=== PATIENT | male | born 1945 | race Caucasian/White ===

== ENCOUNTER 2017-10-10 09:37 | Inpatient (IN) | payer OTHER, MEDICAID ==
[2017-10-10] MEDS ORDERED: NS 250 ML IV 250 ML IV ONE (11:11)
[2017-10-10] MEDS: NS 250 ML IV 250 ML IV SCH (11:17)
[2017-10-10 11:30] LABS: ABG BASE EXCESS 2.4 mmol/L (-2.0-2.0); ABG HCO3 27.2 mmol/L (22-26)
[2017-10-10] MEDS: LEVAQUIN PREMIX IV 500 MG 500 MG/100 ML BAG IV SCH (11:30)
[2017-10-10] MEDS: SOLU-Medrol 125 MG VIAL IVP SCH ×3 (11:30→21:00)
[2017-10-10 11:31] LABS: ABG ALLEN TEST POS
[2017-10-10 11:35] LABS: BASOPHILS # (AUTO) 0.1 X10^3/uL (0.0-0.1); BASOPHILS % (AUTO) 0.6 % (0.2-1.0); EOSINOPHILS % (AUTO) 0.2 % (0.9-2.9); HEMATOCRIT 42.7 % (42.0-54.0); HEMOGLOBIN 14.5 g/dL (13.5-18.0); LYMPHOCYTES # (AUTO) 0.6 X10^3/uL (1.3-2.9); LYMPHOCYTES % (AUTO) 6.1 % (21.0-51.0); MEAN CORPUSCULAR HEMOGLOBIN 31.1 pg (27.0-34.0); MEAN CORPUSCULAR HGB CONC 33.9 g/dL (33.0-35.0); MEAN CORPUSCULAR VOLUME 91.8 fL (80.0-100.0); MEAN PLATELET VOLUME 6.7 fL (7.4-11.0); MONOCYTES # (AUTO) 0.5 x10^3/uL (0.3-0.8); NEUTROPHILS % (AUTO) 88.1 % (42.0-75.0); PLATELET COUNT 204 X10^3/uL (150.0-450.0); RED BLOOD COUNT 4.65 X10^6/uL (4.7-6.0); RED CELL DISTRIBUTION WIDTH 14.4 % (11.6-16.5); WHITE BLOOD COUNT 9.1 X10^3/uL (3.6-10.0)
[2017-10-10 11:41] LABS: BLOOD UREA NITROGEN 13 mg/dL (7-18); CALCIUM 8.8 mg/dL (8.5-10.1); CARBON DIOXIDE 30.2 mmol/L (21-32); CHLORIDE 104 mmol/L (98-107); CREATININE 0.79 mg/dL (0.70-1.30); SODIUM 141 mmol/L (136-145); eGFR BLACK RACES > 60 (>60); eGFR NON BLACK RACES > 60 (>60)
[2017-10-10 12:17] VITALS: BMI 21.1
--- NOTE | 2017-10-10 13:31 | RAD ---
Examination: Chest x-ray. Clinical History: COPD, shortness of breath. Technique: PA and lateral views of the chest were obtained. Comparison: None available. Findings: The cardiac and mediastinal contours are within normal limits. The thoracic aorta is calcified. No pneumothorax or pleural effusion is noted. There are areas of relative lucency seen in the upper lung zones bilaterally, suggestive of COPD/emph ysema. A 1.2 cm nodular opacity is present at the right lung base, which could represent a nipple shadow. A repeat chest x-ray with associated nipple markers is recommended for further evaluation. Degenerative changes are noted in the spine. No acute osseous abnormality is noted. Impression: 1. Findings suggestive of COPD/emphysema. 2. A 1.2 cm nodular opacity is present at the right lung base, which could represent a nipple shadow. A repeat chest x-ray with associated nipple markers is recommended for further evaluation. Reported By:
[2017-10-10] MEDS: DUONEB 0.5 MG/3 MG NEB SCH ×3 (13:32→20:37)
[2017-10-10 14:35] LABS: BILIRUBIN,URINE NEGATIVE (NEGATIVE); BLOOD/HEMOGLOBIN,URINE NEGATIVE (NEGATIVE); GLUCOSE, URINE NEGATIVE (NEGATIVE); KETONES,URINE NEGATIVE (NEGATIVE); LEUKOCYTE ESTERASE ,URINE NEGATIVE (NEGATIVE); NITRITES,URINE NEGATIVE (NEGATIVE); PROTEIN,URINE NEGATIVE (NEGATIVE); UROBILINOGEN,URINE NORMAL (NORMAL)
[2017-10-10 14:40] LABS: APPEARANCE,URINE CLEAR (CLEAR); COLOR,URINE YELLOW (YELLOW)
[2017-10-10] MEDS: NORCO 5/325 MG TAB PO PRN (16:10)
[2017-10-10] MEDS: LOVENOX INJ 30 MG SYR SC SCH (16:14)
--- NOTE | 2017-10-10 18:39 | DR.CONSULT ---
Consult - Consultation for Day of: Date: 10/10/17 - Chief Complaint Chief Complaint: Patient referred for dysphagia. Patient with complaints of dysphagia. - Allergies Allergies/Adverse Reactions: Allergies Allergy/AdvReac Type Severity Reaction Status Date / Time ibuprofen [From Advil] Allergy Verified 10/10/17 10:56 Penicillins Allergy Verified 10/10/17 10:56 Sulfa (Sulfonamide Allergy Verified 10/10/17 10:56 Antibiotics) [SULFA] - History of Present Illness History of Present Illness: Patient is a 72 yo female who was referred for dysphagia. Patient with complaints of dysphagia that has been going on for a while but has gradually gotten worse. He denies dyspepsia he takes dexilant 60mg daily for GERD, he also denies nausea, vomiting, abdominal pain, constipation, diarrhea, melena and hematochezia. Last colon was 3-4yrs ago with Dr. Reese in [place] he states that he had adenomatous colon polyps. - Past Medical History Past Medical History: Anxiety, Arthritis, COPD, Coronary Artery Disease, GERD Additional Medical History: BPH - Past Surgical History Surgical History: Ortho Surgery, TURP - Family History Family Medical History: Cancer, Coronary Artery Disease, Heart Failure, Hypertension - Social History Does patient currently use any type of tobacco product: No Have you used tobacco products in the last 12 months: No Type of Tobacco Use: Cigarettes How many years tobacco product used: 2 Does any household member use tobacco: Yes Alcohol Use: None Drug Use: Prescription Drugs - Review of Systems Constitutional: No Symptoms Reported Eyes: No Symptoms Reported ENT: No Symptoms Reported Respiratory: No Symptoms Reported Cardiovascular: No Symptoms Reported Gastrointestinal: Other (dysphagia) Genitourinary: No Symptoms Reported Musculoskeletal: No Symptoms Reported Skin: No Symptoms Reported Neurological: No Symptoms Reported - Physical Exam Vital Signs: Temperature 98.3 F Pulse Rate [Right Brachial] 66 Pulse Rate [Left Brachial] 65 Respiratory Rate 20 Blood Pressure [Right Arm] 122/64 Blood Pressure [Left Arm] 134/68 O2 Sat by Pulse Oximetry 96 Oriented: Normal Eyes: Normal Ear: Normal Nose: Normal Throat: Normal Respiratory: Clear Throughout Cardiovascular: Normal : Normal Auscultation: Bowel Sounds: Normal Palpation: Normal Tenderness: Normal Skin: Normal Musculoskeletal: Normal Psychiatric: Normal Mood Description: Calm Affect: Normal Speech Pattern: Clear - Plan Plan: Assessment. 1. Dysphagia r/o esophageal stricture. 2. GERD. Plan. 1. EGD as outpatient, if patient is still in hospital EGD may be performed saturday. Otherwise patient to followup in office. 2. Cont Dexilant 60mg Daily. Plan reviewed with Dr. Ramsey
[2017-10-11] MEDS: DUONEB 0.5 MG/3 MG NEB SCH ×6 (00:59→21:23)
[2017-10-11] MEDS: NS 250 ML IV 250 ML IV SCH ×3 (01:26→14:14)
[2017-10-11] MEDS: NORCO 5/325 MG TAB PO PRN (04:53)
[2017-10-11 05:43] LABS: BASOPHILS % (AUTO) 0.2 % (0.2-1.0); HEMATOCRIT 40.2 % (42.0-54.0); HEMOGLOBIN 13.7 g/dL (13.5-18.0); LYMPHOCYTES # (AUTO) 0.5 X10^3/uL (1.3-2.9); LYMPHOCYTES % (AUTO) 4.7 % (21.0-51.0); MEAN CORPUSCULAR HEMOGLOBIN 31.4 pg (27.0-34.0); MEAN CORPUSCULAR HGB CONC 34.1 g/dL (33.0-35.0); MEAN CORPUSCULAR VOLUME 92.2 fL (80.0-100.0); MEAN PLATELET VOLUME 7.1 fL (7.4-11.0); MONOCYTES # (AUTO) 0.3 x10^3/uL (0.3-0.8); MONOCYTES % (AUTO) 2.5 % (0.0-13.0); NEUTROPHILS # (AUTO) 10.1 x10^3/uL (2.2-4.8); NEUTROPHILS % (AUTO) 92.6 % (42.0-75.0); PLATELET COUNT 197 X10^3/uL (150.0-450.0); RED BLOOD COUNT 4.36 X10^6/uL (4.7-6.0); RED CELL DISTRIBUTION WIDTH 14.2 % (11.6-16.5)
[2017-10-11 05:47] LABS: BLOOD UREA NITROGEN 17 mg/dL (7-18); CALCIUM 8.5 mg/dL (8.5-10.1); CARBON DIOXIDE 26.7 mmol/L (21-32); CHLORIDE 105 mmol/L (98-107); COR NA(FOR HYPERGLY) 142 mmol/L (136-145); CREATININE 0.82 mg/dL (0.70-1.30); SODIUM 140 mmol/L (136-145); eGFR BLACK RACES > 60 (>60); eGFR NON BLACK RACES > 60 (>60)
[2017-10-11 05:55] LABS: BAND NEUTROPHILS % 1 % (0-10); PLATELET MORPHOLOGY COMMENT NORMAL (NORMAL)
[2017-10-11] MEDS: SOLU-Medrol 125 MG VIAL IVP SCH ×3 (05:56→21:04)
[2017-10-11] MEDS ORDERED: TOPIRAMATE PO PRN (08:17)
[2017-10-11] MEDS ORDERED: BUPRENORPHINE TOP SCH (08:30)
--- NOTE | 2017-10-11 08:30 | DR.H&P ---
H&P - History & Physical for Day of: H&P Date: 10/10/17 - Chief Complaint Chief Complaint: Shortness of breath - Allergies Allergies/Adverse Reactions: Allergies Allergy/AdvReac Type Severity Reaction Status Date / Time ibuprofen [From Advil] Allergy Verified 10/10/17 10:56 Penicillins Allergy Verified 10/10/17 10:56 Sulfa (Sulfonamide Allergy Verified 10/10/17 10:56 Antibiotics) [SULFA] - History of Present Illness History of Present Illness: The patient is a 72yo WM who presents to the [facility] with complaint of SOB. The patient has a long standing history of COPD. States started Saturday. States has been using Nebs four times a day and taking prednisone without improvement. Has depended on his home oxygen more as well. O2 sat 83 % on arrival to Clinic. Did imprve to 98% with treatment and rest. Nonproductive cough. Denies fever. - Past Medical History Past Medical History: Anxiety, Arthritis, COPD, Coronary Artery Disease, GERD Additional Medical History: BPH - Past Surgical History Surgical History: Ortho Surgery, TURP - Family History Family Medical History: Cancer, Coronary Artery Disease, Heart Failure, Hypertension - Social History Does patient currently use any type of tobacco product: No Have you used tobacco products in the last 12 months: No Type of Tobacco Use: Cigarettes How many years tobacco product used: 2 Does any household member use tobacco: Yes Alcohol Use: None Drug Use: Prescription Drugs - Medications Home Medications: Buprenorphine [Butrans] 1 patch TOP WEEKLY 10/10/17 [History Confirmed 10/10/17] Dexlansoprazole [Dexilant] 1 cap PO DAILY 10/10/17 [History Confirmed 10/10/17] Ezetimibe 0.5 tab PO HS 10/10/17 [History Confirmed 10/10/17] Fluticasone-Salmeterol 250/50 [ADVAIR DISKUS 250/50 60-DOSE *] 1 puff INH BID PRN 10/10/17 [History Confirmed 10/10/17] Fluticasone/Vilanterol [Breo Ellipta 200-25 Mcg INH] 1 puff INH DAILY 10/10/17 [ History Confirmed 10/10/17] Gabapentin 1 cap PO TID 10/10/17 [History Confirmed 10/10/17] Lorazepam 1 tab PO DAILY PRN 10/10/17 [History Confirmed 10/10/17] Metoprolol Tartrate 12.5 mg PO HS 10/10/17 [History Confirmed 10/10/17] Montelukast Sodium [Singulair] 1 tab PO HS 10/10/17 [History Confirmed 10/10/17] Oxycodone HCl/Acetaminophen [Oxycodone-Acetaminophen 10-325] 1 tab PO QID [History Confirmed 10/10/17] Prednisone [PREDNISONE TAB 20 MG *] 1 tab PO DAILY 10/10/17 [History Confirmed 10/10/17] Tamsulosin HCl [FLOMAX (GENERIC) 0.4 MG *] 1 cap PO DAILY 10/10/17 [History Confirmed 10/10/17] Topiramate 1 tab PO DAILY PRN 10/10/17 [History Confirmed 10/10/17] - Review of Systems Constitutional: Weakness, Malaise Eyes: No Symptoms Reported ENT: No Symptoms Reported Respiratory: Shortness of Breath, SOB with Excertion, Wheezing Cardiovascular: No Symptoms Reported Gastrointestinal: No Symptoms Reported Genitourinary: No Symptoms Reported Musculoskeletal: No Symptoms Reported Skin: No Symptoms Reported Neurological: No Symptoms Reported - Physical Exam Vital Signs: Temperature 97.5 F Pulse Rate [Right Brachial] 69 Pulse Rate [Left Brachial] 65 Pulse Rate 70 Respiratory Rate 20 Blood Pressure [Right Arm] 119/55 Blood Pressure [Left Arm] 120/59 O2 Sat by Pulse Oximetry 97 Oriented: Normal Eyes: Normal Ear: Normal Nose: Normal Throat: Normal Respiratory: Diminished Throughout, Wheezes Throughout Cardiovascular: Normal : Normal Auscultation: Bowel Sounds: Normal Palpation: Normal Tenderness: Normal Skin: Normal Musculoskeletal: Normal Psychiatric: Normal Mood Description: Calm Affect: Normal Speech Pattern: Clear - Assessment/Plan (1) Acute exacerbation of chronic obstructive pulmonary disease (COPD) Status: Acute Plan: CXR, Labs, Solumedrol, Albuterol Nebs (2) Acute and chronic respiratory failure with hypoxia Status: Acute Plan: CXR, Labs, Solumedrol, Albuterol Nebs, Oxygen
[2017-10-11] MEDS ORDERED: PATIENT'S HOME MEDICATION (Fluticasone-Salmeterol 250/50 1 PUFF) INH SCH (09:00)
[2017-10-11] MEDS ORDERED: PATIENT'S HOME MEDICATION (Fluticasone/Vilanterol [Breo Ellipta 200-25 Mcg Inh] 1 PUFF) INH SCH (09:00)
[2017-10-11] MEDS ORDERED: PATIENT'S HOME MEDICATION (Dexlansoprazole [Dexilant] 1 CAP) PO SCH (09:00)
[2017-10-11] MEDS ORDERED: TOPAMAX PO PRN (09:28)
[2017-10-11] MEDS: PERCOCET TAB 5/325 MG PO PRN ×2 (09:53→17:15)
[2017-10-11] MEDS: FLOMAX PO SCH (09:53)
[2017-10-11] MEDS: PROTONIX INJ 40 MG VIAL IVP SCH (09:53)
[2017-10-11] MEDS: LOVENOX INJ 30 MG SYR SC SCH (09:54)
[2017-10-11] MEDS: LEVAQUIN PREMIX IV 500 MG 500 MG/100 ML BAG IV SCH (09:54)
[2017-10-11] MEDS: ATIVAN TAB 0.5 MG PO PRN (10:46)
[2017-10-11] MEDS: DIFLUCAN 200 MG IV PREMIX* 200 MG/100 ML BAG IV SCH (10:46)
[2017-10-11] MEDS: NYSTATIN SUSP MT SCH ×4 (10:46→21:04)
[2017-10-11] MEDS: PULMICORT NEB TX 0.5 MG NEB SCH ×2 (11:59→21:23)
[2017-10-11] MEDS: NEURONTIN CAP 300 MG PO SCH ×2 (13:20→21:04)
--- NOTE | 2017-10-11 16:15 | PCM.PROG ---
Progress Note - Progress Note for Day of Date: 10/11/17 - Subjective Subjective: 72 WM ADMITTED ON 10/10 WITH COPD EXACERBATION FAILED OP THERAPY. PT CO SORES IN MOUTH AND TONGUES THIS AM AND DIFFICULTY SWALLOWING DUE TO SORE THROAT. CONTINUED DIFFUSE WHEEZING AND SOB AT REST. PT CURRENTLY ON IV ATBX AND RESP THERAPY. - Past Medical Family Social History Past Med/Fam/Surg Hx: No changes since H&P Allergies: Allergies ibuprofen [From Advil] Allergy (Verified 10/10/17 10:56) Penicillins Allergy (Verified 10/10/17 10:56) Sulfa (Sulfonamide Antibiotics) [SULFA] Allergy (Verified 10/10/17 10:56) - Review of Systems ROS: No change since H&P - Vital Signs and I&O's Vital Signs: Temperature 98.0 F Pulse Rate [Right Brachial] 67 Pulse Rate [Left Brachial] 67 Pulse Rate 72 Respiratory Rate 24 Blood Pressure [Right Arm] 119/55 Blood Pressure [Left Arm] 118/62 O2 Sat by Pulse Oximetry 97 Intake and Output: Intake & Output 10/09/17 10/10/17 10/11/17 10/12/17 11:59 11:59 11:59 11:59 Intake Total 1670 250 Output Total 1050 Balance 620 250 - Physical Exam Oriented: Normal Eyes: Normal Ear: Normal Nose: Normal Throat: Red, Other (WHITE PATCHES TO BUCCAL, PALLATE AND TONGUE) Respiratory: Diminished, Wheezes Cardiovascular: Normal : Normal Auscultation: Bowel Sounds: Normal Tenderness: Normal Skin: Decreased Turgur Musculoskeletal: Normal Psychiatric: Anxiety Affect: Normal Speech Pattern: Clear - Laboratory and Diagnostics Result Diagrams: 10/11/17 04:50 10/11/17 04:50 Labs: 10/10/17 14:21 Urine,Clean Catch Urine Culture - Preliminary 10/10/17 11:25 Sputum - Expectorated Sputum Sputum Culture - Preliminary 10/10/17 11:25 Sputum - Expectorated Sputum - Final Laboratory WBC 11.0 X10^3/uL (3.6-10.0) H 10/11/17 04:50 RBC 4.36 X10^6/uL (4.7-6.0) L 10/11/17 04:50 Hgb 13.7 g/dL (13.5-18.0) 10/11/17 04:50 Hct 40.2 % (42.0-54.0) L 10/11/17 04:50 MCV 92.2 fL (80.0-100.0) 10/11/17 04:50 MCH 31.4 pg (27.0-34.0) 10/11/17 04:50 MCHC 34.1 g/dL (33.0-35.0) 10/11/17 04:50 RDW 14.2 % (11.6-16.5) 10/11/17 04:50 Plt Count 197 X10^3/uL (150.0-450.0) 10/11/17 04:50 Plt Count Comment Adequate (ADEQUATE) 10/11/17 04:50 MPV 7.1 fL (7.4-11.0) L 10/11/17 04:50 Neut % (Auto) 92.6 % (42.0-75.0) H 10/11/17 04:50 Lymph % (Auto) 4.7 % (21.0-51.0) L 10/11/17 04:50 [place] % (Auto) 2.5 % (0.0-13.0) 10/11/17 04:50 Eos % (Auto) 0.0 % (0.9-2.9) L 10/11/17 04:50 Baso % (Auto) 0.2 % (0.2-1.0) 10/11/17 04:50 Neut # (Auto) 10.1 x10^3/uL (2.2-4.8) H 10/11/17 04:50 Lymph # (Auto) 0.5 X10^3/uL (1.3-2.9) L 10/11/17 04:50 [place] # (Auto) 0.3 x10^3/uL (0.3-0.8) 10/11/17 04:50 Eos # (Auto) 0.0 x10^3/uL (0.0-0.2) 10/11/17 04:50 Baso # (Auto) 0.0 X10^3/uL (0.0-0.1) 10/11/17 04:50 Absolute Nucleated RBC 0.0 /100WBC 10/11/17 04:50 Total Counted 100 10/11/17 04:50 Neutrophils % (Manual) 90 % (39-76) H 10/11/17 04:50 Band Neutrophils % 1 % (0-10) 10/11/17 04:50 Lymphocytes % (Manual) 7 % (13-43) L 10/11/17 04:50 Monocytes % (Manual) 2 % (4-9) L 10/11/17 04:50 Plt Morphology Comment Normal (NORMAL) 10/11/17 04:50 RBC Morphology Normal (NORMAL) 10/11/17 04:50 Sample Site Rr 10/10/17 11:25 ABG pH 7.420 (7.35-7.45) 10/10/17 11:25 ABG pCO2 42.0 mmHg (35.0-45.0) 10/10/17 11:25 ABG pO2 81.0 mmHg (80.0-100.0) 10/10/17 11:25 ABG HCO3 27.2 mmol/L (22-26) H 10/10/17 11:25 ABG O2 Saturation 96.0 % (90-100) 10/10/17 11:25 ABG Base Excess 2.4 mmol/L (-2.0-2.0) H 10/10/17 11:25 Froy Test Pos 10/10/17 11:25 A-a Gradient 16.0 mmHg 10/10/17 11:25 FiO2 21.000 10/10/17 11:25 Blood Gas Comments Pt maye well. cdn 10/10/17 11:25 Sodium 140 mmol/L (136-145) 10/11/17 04:50 Corrected Sodium 142 mmol/L (136-145) 10/11/17 04:50 Potassium 4.0 mmol/L (3.5-5.1) 10/11/17 04:50 Chloride 105 mmol/L (98-107) 10/11/17 04:50 Carbon Dioxide 26.7 mmol/L (21-32) 10/11/17 04:50 BUN 17 mg/dL (7-18) 10/11/17 04:50 Creatinine 0.82 mg/dL (0.70-1.30) 10/11/17 04:50 Est GFR (MDRD) Af Amer > 60 (>60) 10/11/17 04:50 Est GFR (MDRD) Non-Af > 60 (>60) 10/11/17 04:50 Glucose 183 mg/dL (65-99) H 10/11/17 04:50 Calcium 8.5 mg/dL (8.5-10.1) 10/11/17 04:50 Specimen Type Clean catch urine 10/10/17 14:21 Urine Color Yellow (YELLOW) 10/10/17 14:21 Urine Appearance Clear (CLEAR) 10/10/17 14:21 Urine pH 6.0 (5.0 - 8.0) 10/10/17 14:21 Ur Specific [place] 1.010 (1.000-1.030) 10/10/17 14:21 Urine Protein Negative (NEGATIVE) 10/10/17 14:21 Urine Glucose (UA) Negative (NEGATIVE) 10/10/17 14:21 Urine Ketones Negative (NEGATIVE) 10/10/17 14:21 Urine Occult Blood Negative (NEGATIVE) 10/10/17 14:21 Urine Nitrite Negative (NEGATIVE) 10/10/17 14:21 Urine Bilirubin Negative (NEGATIVE) 10/10/17 14:21 Urine Urobilinogen Normal (NORMAL) 10/10/17 14:21 Ur Leukocyte Esterase Negative (NEGATIVE) 10/10/17 14:21 - Plan (1) Acute and chronic respiratory failure with hypoxia Status: Acute Plan: CXR, Labs, Solumedrol, Albuterol Nebs, Oxygen (2) GERD (gastroesophageal reflux disease) Status: Acute (3) Oral candidiasis Status: Acute Plan: NYSTATIN AND DIFLUCAN (4) Acute exacerbation of chronic obstructive pulmonary disease (COPD) Status: Acute Plan: CXR, Labs, Solumedrol, Albuterol Nebs
[2017-10-11] MEDS: CHECK PATCH XX SCH (20:03)
[2017-10-11] MEDS: LOPRESSOR TAB 25 MG PO SCH (20:03)
[2017-10-11] MEDS: SINGULAIR TAB 10 MG PO SCH (20:04)
[2017-10-11] MEDS: ZETIA TAB 10 MG PO SCH (20:04)
[2017-10-11] MEDS: CHLORASEPTIC SPRAY MT PRN (21:04)
[2017-10-12] MEDS: PERCOCET TAB 5/325 MG PO PRN ×4 (00:20→20:25)
[2017-10-12] MEDS: DUONEB 0.5 MG/3 MG NEB SCH ×7 (00:35→20:45)
[2017-10-12] MEDS: NS 250 ML IV 250 ML IV SCH ×2 (01:38→15:51)
[2017-10-12] MEDS: PULMICORT NEB TX 0.5 MG NEB SCH ×3 (02:53→20:45)
[2017-10-12] MEDS: SOLU-Medrol 125 MG VIAL IVP SCH ×3 (05:38→21:14)
[2017-10-12] MEDS: NEURONTIN CAP 300 MG PO SCH ×3 (05:38→21:14)
[2017-10-12 05:45] LABS: BASOPHILS % (AUTO) 0.1 % (0.2-1.0); HEMATOCRIT 40.7 % (42.0-54.0); HEMOGLOBIN 13.8 g/dL (13.5-18.0); LYMPHOCYTES # (AUTO) 0.5 X10^3/uL (1.3-2.9); LYMPHOCYTES % (AUTO) 3.5 % (21.0-51.0); MEAN CORPUSCULAR HEMOGLOBIN 30.9 pg (27.0-34.0); MEAN CORPUSCULAR HGB CONC 33.8 g/dL (33.0-35.0); MEAN CORPUSCULAR VOLUME 91.5 fL (80.0-100.0); MEAN PLATELET VOLUME 6.9 fL (7.4-11.0); MONOCYTES # (AUTO) 0.5 x10^3/uL (0.3-0.8); MONOCYTES % (AUTO) 3.6 % (0.0-13.0); NEUTROPHILS # (AUTO) 13.2 x10^3/uL (2.2-4.8); NEUTROPHILS % (AUTO) 92.8 % (42.0-75.0); PLATELET COUNT 216 X10^3/uL (150.0-450.0); RED BLOOD COUNT 4.45 X10^6/uL (4.7-6.0); RED CELL DISTRIBUTION WIDTH 14.2 % (11.6-16.5); WHITE BLOOD COUNT 14.2 X10^3/uL (3.6-10.0)
[2017-10-12 06:01] LABS: BLOOD UREA NITROGEN 19 mg/dL (7-18); CALCIUM 8.3 mg/dL (8.5-10.1); CARBON DIOXIDE 29.2 mmol/L (21-32); CHLORIDE 102 mmol/L (98-107); COR NA(FOR HYPERGLY) 142 mmol/L (136-145); CREATININE 0.79 mg/dL (0.70-1.30); SODIUM 141 mmol/L (136-145); eGFR BLACK RACES > 60 (>60); eGFR NON BLACK RACES > 60 (>60)
[2017-10-12 06:10] LABS: BAND NEUTROPHILS % 3 % (0-10); PLATELET MORPHOLOGY COMMENT NORMAL (NORMAL)
[2017-10-12] MEDS: ATIVAN TAB 0.5 MG PO PRN (08:40)
[2017-10-12] MEDS: DIFLUCAN 200 MG IV PREMIX* 200 MG/100 ML BAG IV SCH (08:40)
[2017-10-12] MEDS: FLOMAX PO SCH (08:40)
[2017-10-12] MEDS: CHECK PATCH XX SCH ×2 (08:40→20:35)
[2017-10-12] MEDS: NYSTATIN SUSP MT SCH ×4 (08:41→20:26)
[2017-10-12] MEDS: LOVENOX INJ 30 MG SYR SC SCH (08:41)
[2017-10-12] MEDS: LEVAQUIN PREMIX IV 500 MG 500 MG/100 ML BAG IV SCH (08:41)
[2017-10-12] MEDS: PROTONIX INJ 40 MG VIAL IVP SCH (08:41)
[2017-10-12] MEDS: CHLORASEPTIC SPRAY MT PRN (13:39)
[2017-10-12] MEDS ORDERED: NS 250 ML IV 250 ML IV PRN (15:50)
[2017-10-12] MEDS: MIRALAX POWDER (1 DOSE 17GM) PO SCH ×2 (20:24→20:34)
[2017-10-12] MEDS: SINGULAIR TAB 10 MG PO SCH (20:26)
[2017-10-12] MEDS: LOPRESSOR TAB 25 MG PO SCH (20:26)
[2017-10-12] MEDS: ZETIA TAB 10 MG PO SCH (20:26)
[2017-10-13] MEDS: DUONEB 0.5 MG/3 MG NEB SCH ×6 (01:25→20:59)
[2017-10-13 04:03] LABS: BASOPHILS % (AUTO) 0.1 % (0.2-1.0); HEMATOCRIT 41.1 % (42.0-54.0); HEMOGLOBIN 13.9 g/dL (13.5-18.0); LYMPHOCYTES # (AUTO) 0.4 X10^3/uL (1.3-2.9); LYMPHOCYTES % (AUTO) 3.8 % (21.0-51.0); MEAN CORPUSCULAR HGB CONC 33.8 g/dL (33.0-35.0); MEAN CORPUSCULAR VOLUME 91.8 fL (80.0-100.0); MEAN PLATELET VOLUME 6.8 fL (7.4-11.0); MONOCYTES # (AUTO) 0.4 x10^3/uL (0.3-0.8); MONOCYTES % (AUTO) 3.7 % (0.0-13.0); NEUTROPHILS # (AUTO) 10.2 x10^3/uL (2.2-4.8); NEUTROPHILS % (AUTO) 92.4 % (42.0-75.0); PLATELET COUNT 207 X10^3/uL (150.0-450.0); RED BLOOD COUNT 4.48 X10^6/uL (4.7-6.0); RED CELL DISTRIBUTION WIDTH 14.1 % (11.6-16.5)
[2017-10-13 04:08] LABS: ALANINE AMINOTRANSFERASE 26 Units/L (12-78); ALBUMIN 2.9 g/dL (3.4-5.0); ALKALINE PHOSPHATASE 46 Units/L (46-116); ASPARTATE AMINO TRANSFERASE 14 Units/L (15-37); BLOOD UREA NITROGEN 16 mg/dL (7-18); CARBON DIOXIDE 32.4 mmol/L (21-32); CHLORIDE 103 mmol/L (98-107); COR CA(FOR HYPOALB) 8.9 mg/dL (8.5-10.1); COR NA(FOR HYPERGLY) 139 mmol/L (136-145); CREATININE 0.79 mg/dL (0.70-1.30); SODIUM 139 mmol/L (136-145); eGFR BLACK RACES > 60 (>60); eGFR NON BLACK RACES > 60 (>60)
[2017-10-13 04:15] LABS: BAND NEUTROPHILS % 1 % (0-10); PLATELET MORPHOLOGY COMMENT NORMAL (NORMAL)
[2017-10-13] MEDS: NEURONTIN CAP 300 MG PO SCH ×3 (05:37→21:10)
[2017-10-13] MEDS: CHLORASEPTIC SPRAY MT PRN ×2 (05:37→20:39)
[2017-10-13] MEDS: SOLU-Medrol 125 MG VIAL IVP SCH (05:37)
[2017-10-13] MEDS: PERCOCET TAB 5/325 MG PO PRN ×3 (05:38→20:35)
--- NOTE | 2017-10-13 08:06 | RAD ---
Examination: Portable AP chest History: SOB Comparison reference 10/10/2017 Findings: Normal heart size with essentially clear lungs and pleural spaces. No evidence for infiltra te, nodule or pleural fluid. Impression: No acute or significant chest findings demonstrated. Reported By:
[2017-10-13] MEDS: DIFLUCAN 200 MG IV PREMIX* 200 MG/100 ML BAG IV SCH (08:21)
[2017-10-13] MEDS: LEVAQUIN PREMIX IV 500 MG 500 MG/100 ML BAG IV SCH (08:22)
[2017-10-13] MEDS: NYSTATIN SUSP MT SCH ×4 (08:23→20:34)
[2017-10-13] MEDS: LOVENOX INJ 30 MG SYR SC SCH (08:24)
[2017-10-13] MEDS: PROTONIX INJ 40 MG VIAL IVP SCH (08:24)
[2017-10-13] MEDS: FLOMAX PO SCH (08:24)
[2017-10-13] MEDS: CHECK PATCH XX SCH ×2 (08:27→20:37)
[2017-10-13] MEDS: PULMICORT NEB TX 0.5 MG NEB SCH ×2 (09:17→20:59)
[2017-10-13] MEDS: SINGULAIR TAB 10 MG PO SCH (20:34)
[2017-10-13] MEDS: ZETIA TAB 10 MG PO SCH (20:34)
[2017-10-13] MEDS: LOPRESSOR TAB 25 MG PO SCH (20:34)
[2017-10-13] MEDS: ATIVAN TAB 0.5 MG PO PRN (20:35)
[2017-10-13] MEDS: MIRALAX POWDER (1 DOSE 17GM) PO SCH (20:38)
--- NOTE | 2017-10-13 21:30 | PCM.PROG ---
Progress Note - Progress Note for Day of Date: 10/12/17 - Subjective Subjective: IS BEING TREATED FOR ACUTE COPD EXACERBATION WITH ACUTE BRONCHITIS. TODAY, HE IS ALERT AND ORIENTED, LYING IN BED ON MORNING ROUNDS. HE IS NOTED WITH COMPLAINTS OF SHORTNESS OF BREATH AND COUGH. ON EXAMINATION, HEART IS REGULAR IN RATE AND RHYTHM. BILATERAL LUNGS ARE NOTED WITH WHEEZING THROUGHOUT. ABDOMEN ROUND, SOFT, AND NON-TENDER WITH NORMAL BOWEL SOUNDS NOTED IN ALL QUADRANTS. VITALS THIS MORNING ARE 97.5-58-20-97%-130/61. ABNORMAL LAB VALUES INCLUDE WBC INCREASED FROM 11.0 TO 14.2, RBC 4.45, HCT 40.7, BUN 19, GLUCOSE 139, CALCIUM 8.3. HE IS CURRENTLY RECEIVING LEVAQUIN, RESPIRATORY TREATMENTS, AND SUPPLEMENTAL OXYGEN. WE WILL CONTINUE WITH CURRENT PLAN OF CARE TODAY. WE PLAN TO FOLLOW UP WITH AM LABS AND CONTINUE TO MONITOR PATIENT. - Past Medical Family Social History Past Med/Fam/Surg Hx: No changes since H&P Allergies: Allergies ibuprofen [From Advil] Allergy (Verified 10/10/17 10:56) Penicillins Allergy (Verified 10/10/17 10:56) Sulfa (Sulfonamide Antibiotics) [SULFA] Allergy (Verified 10/10/17 10:56) - Review of Systems ROS: No change since H&P - Vital Signs and I&O's Vital Signs: Temperature 98.0 F Pulse Rate [Right Brachial] 64 Pulse Rate [Left Brachial] 59 Pulse Rate 77 Respiratory Rate 20 Blood Pressure [Right Arm] 139/73 Blood Pressure [Left Arm] 142/72 O2 Sat by Pulse Oximetry 96 Intake and Output: Intake & Output 10/11/17 10/12/17 10/13/17 10/14/17 11:59 11:59 11:59 11:59 Intake Total 1670 2246 2620 1640 Output Total 1050 Balance 620 2246 2620 1640 - Physical Exam Oriented: Normal Eyes: Normal Ear: Normal Nose: Normal Throat: Red, Other (WHITE PATCHES TO BUCCAL, PALLATE AND TONGUE) Respiratory: Diminished, Wheezes Cardiovascular: Normal : Normal Auscultation: Bowel Sounds: Normal Palpation: Normal Tenderness: Normal Skin: Decreased [place]ur Musculoskeletal: Normal Psychiatric: Anxiety Mood Description: Calm Affect: Normal Speech Pattern: Clear - Laboratory and Diagnostics Result Diagrams: 10/13/17 03:50 10/13/17 03:50 Labs: 10/10/17 11:12 Blood Blood Culture - Preliminary 10/10/17 14:21 Urine,Clean Catch Urine Culture - Final 10/10/17 11:25 Sputum - Expectorated Sputum Sputum Culture - Final Klebsiella Pneumoniae 10/10/17 11:25 Sputum - Expectorated Sputum - Final Laboratory WBC 11.0 X10^3/uL (3.6-10.0) H 10/13/17 03:50 RBC 4.48 X10^6/uL (4.7-6.0) L 10/13/17 03:50 Hgb 13.9 g/dL (13.5-18.0) 10/13/17 03:50 Hct 41.1 % (42.0-54.0) L 10/13/17 03:50 MCV 91.8 fL (80.0-100.0) 10/13/17 03:50 MCH 31.0 pg (27.0-34.0) 10/13/17 03:50 MCHC 33.8 g/dL (33.0-35.0) 10/13/17 03:50 RDW 14.1 % (11.6-16.5) 10/13/17 03:50 Plt Count 207 X10^3/uL (150.0-450.0) 10/13/17 03:50 Plt Count Comment Adequate (ADEQUATE) 10/13/17 03:50 MPV 6.8 fL (7.4-11.0) L 10/13/17 03:50 Neut % (Auto) 92.4 % (42.0-75.0) H 10/13/17 03:50 Lymph % (Auto) 3.8 % (21.0-51.0) L 10/13/17 03:50 [place] % (Auto) 3.7 % (0.0-13.0) 10/13/17 03:50 Eos % (Auto) 0.0 % (0.9-2.9) L 10/13/17 03:50 Baso % (Auto) 0.1 % (0.2-1.0) L 10/13/17 03:50 Neut # (Auto) 10.2 x10^3/uL (2.2-4.8) H 10/13/17 03:50 Lymph # (Auto) 0.4 X10^3/uL (1.3-2.9) L 10/13/17 03:50 [place] # (Auto) 0.4 x10^3/uL (0.3-0.8) 10/13/17 03:50 Eos # (Auto) 0.0 x10^3/uL (0.0-0.2) 10/13/17 03:50 Baso # (Auto) 0.0 X10^3/uL (0.0-0.1) 10/13/17 03:50 Absolute Nucleated RBC 0.0 /100WBC 10/13/17 03:50 Total Counted 100 10/13/17 03:50 Neutrophils % (Manual) 95 % (39-76) H 10/13/17 03:50 Band Neutrophils % 1 % (0-10) 10/13/17 03:50 Lymphocytes % (Manual) 2 % (13-43) L 10/13/17 03:50 Monocytes % (Manual) 2 % (4-9) L 10/13/17 03:50 Plt Morphology Comment Normal (NORMAL) 10/13/17 03:50 RBC Morphology Normal (NORMAL) 10/13/17 03:50 Sample Site Rr 10/10/17 11:25 ABG pH 7.420 (7.35-7.45) 10/10/17 11:25 ABG pCO2 42.0 mmHg (35.0-45.0) 10/10/17 11:25 ABG pO2 81.0 mmHg (80.0-100.0) 10/10/17 11:25 ABG HCO3 27.2 mmol/L (22-26) H 10/10/17 11:25 ABG O2 Saturation 96.0 % (90-100) 10/10/17 11:25 ABG Base Excess 2.4 mmol/L (-2.0-2.0) H 10/10/17 11:25 Froy Test Pos 10/10/17 11:25 A-a Gradient 16.0 mmHg 10/10/17 11:25 FiO2 21.000 10/10/17 11:25 Blood Gas Comments Pt maye well. cdn 10/10/17 11:25 Sodium 139 mmol/L (136-145) 10/13/17 03:50 Corrected Sodium 139 mmol/L (136-145) 10/13/17 03:50 Potassium 4.3 mmol/L (3.5-5.1) 10/13/17 03:50 Chloride 103 mmol/L (98-107) 10/13/17 03:50 Carbon Dioxide 32.4 mmol/L (21-32) H 10/13/17 03:50 BUN 16 mg/dL (7-18) 10/13/17 03:50 Creatinine 0.79 mg/dL (0.70-1.30) 10/13/17 03:50 Est GFR (MDRD) Af Amer > 60 (>60) 10/13/17 03:50 Est GFR (MDRD) Non-Af > 60 (>60) 10/13/17 03:50 Glucose 119 mg/dL (65-99) H 10/13/17 03:50 Calcium 8.0 mg/dL (8.5-10.1) L 10/13/17 03:50 Corrected Calcium 8.9 mg/dL (8.5-10.1) 10/13/17 03:50 Total Bilirubin 0.20 mg/dL (0.2-1.0) 10/13/17 03:50 AST 14 Units/L (15-37) L 10/13/17 03:50 ALT 26 Units/L (12-78) 10/13/17 03:50 Alkaline Phosphatase 46 Units/L (46-116) 10/13/17 03:50 Total Protein 6.0 g/dL (6.4-8.2) L 10/13/17 03:50 Albumin 2.9 g/dL (3.4-5.0) L 10/13/17 03:50 Globulin 3.1 g/dL (2.5-4.5) 10/13/17 03:50 Albumin/Globulin Ratio 0.9 Ratio (1.1-2.1) L 10/13/17 03:50 Specimen Type Clean catch urine 10/10/17 14:21 Urine Color Yellow (YELLOW) 10/10/17 14:21 Urine Appearance Clear (CLEAR) 10/10/17 14:21 Urine pH 6.0 (5.0 - 8.0) 10/10/17 14:21 Ur Specific [place] 1.010 (1.000-1.030) 10/10/17 14:21 Urine Protein Negative (NEGATIVE) 10/10/17 14:21 Urine Glucose (UA) Negative (NEGATIVE) 10/10/17 14:21 Urine Ketones Negative (NEGATIVE) 10/10/17 14:21 Urine Occult Blood Negative (NEGATIVE) 10/10/17 14:21 Urine Nitrite Negative (NEGATIVE) 10/10/17 14:21 Urine Bilirubin Negative (NEGATIVE) 10/10/17 14:21 Urine Urobilinogen Normal (NORMAL) 10/10/17 14:21 Ur Leukocyte Esterase Negative (NEGATIVE) 10/10/17 14:21
--- NOTE | 2017-10-13 22:37 | PCM.PROG ---
Progress Note - Progress Note for Day of Date: 10/13/17 - Subjective Subjective: IS BEING TREATED FOR ACUTE COPD EXACERBATION WITH ACUTE BRONCHITIS. TODAY, HE IS ALERT AND ORIENTED, LYING IN BED ON MORNING ROUNDS. HE CONTINUES WITH COMPLAINTS OF SHORTNESS OF BREATH AND COUGH. ON EXAMINATION, HEART IS REGULAR IN RATE AND RHYTHM. BILATERAL LUNGS ARE NOTED WITH WHEEZING THROUGHOUT. ABDOMEN ROUND, SOFT, AND NON-TENDER WITH NORMAL BOWEL SOUNDS NOTED IN ALL QUADRANTS. VITALS THIS MORNING ARE 97.4-62-20-95%-129/67. ABNORMAL LAB VALUES INCLUDE: WBC 11.0, RBC 4.48, HCT 41.1, CARBON DIOXIDE 32.4, GLUCOSE 119, CALCIUM 8.0, AST 14, TOTAL PROTEIN 6.0, ALBUMIN 2.9. HE IS CURRENTLY RECEIVING LEVAQUIN, RESPIRATORY TREATMENTS, AND SUPPLEMENTAL OXYGEN. WE WILL CONTINUE WITH CURRENT PLAN OF CARE TODAY. WE PLAN TO FOLLOW UP WITH AM LABS AND CONTINUE TO MONITOR PATIENT. - Past Medical Family Social History Past Med/Fam/Surg Hx: No changes since H&P Allergies: Allergies ibuprofen [From Advil] Allergy (Verified 10/10/17 10:56) Penicillins Allergy (Verified 10/10/17 10:56) Sulfa (Sulfonamide Antibiotics) [SULFA] Allergy (Verified 10/10/17 10:56) - Review of Systems ROS: No change since H&P - Vital Signs and I&O's Vital Signs: Temperature 98.0 F Pulse Rate [Right Brachial] 64 Pulse Rate [Left Brachial] 59 Pulse Rate 77 Respiratory Rate 20 Blood Pressure [Right Arm] 139/73 Blood Pressure [Left Arm] 142/72 O2 Sat by Pulse Oximetry 96 Intake and Output: Intake & Output 10/11/17 10/12/17 10/13/17 10/14/17 11:59 11:59 11:59 11:59 Intake Total 1670 2246 2620 1640 Output Total 1050 Balance 620 2246 2620 1640 - Physical Exam Oriented: Normal Eyes: Normal Ear: Normal Nose: Normal Throat: Red, Other (WHITE PATCHES TO BUCCAL, PALLATE AND TONGUE) Respiratory: Diminished, Wheezes Cardiovascular: Normal : Normal Auscultation: Bowel Sounds: Normal Palpation: Normal Tenderness: Normal Skin: Decreased [place] Musculoskeletal: Normal Psychiatric: Anxiety Mood Description: Calm Affect: Normal Speech Pattern: Clear - Laboratory and Diagnostics Result Diagrams: 10/13/17 03:50 10/13/17 03:50 Labs: 10/10/17 11:12 Blood Blood Culture - Preliminary 10/10/17 14:21 Urine,Clean Catch Urine Culture - Final 10/10/17 11:25 Sputum - Expectorated Sputum Sputum Culture - Final Klebsiella Pneumoniae 10/10/17 11:25 Sputum - Expectorated Sputum - Final Laboratory WBC 11.0 X10^3/uL (3.6-10.0) H 10/13/17 03:50 RBC 4.48 X10^6/uL (4.7-6.0) L 10/13/17 03:50 Hgb 13.9 g/dL (13.5-18.0) 10/13/17 03:50 Hct 41.1 % (42.0-54.0) L 10/13/17 03:50 MCV 91.8 fL (80.0-100.0) 10/13/17 03:50 MCH 31.0 pg (27.0-34.0) 10/13/17 03:50 MCHC 33.8 g/dL (33.0-35.0) 10/13/17 03:50 RDW 14.1 % (11.6-16.5) 10/13/17 03:50 Plt Count 207 X10^3/uL (150.0-450.0) 10/13/17 03:50 Plt Count Comment Adequate (ADEQUATE) 10/13/17 03:50 MPV 6.8 fL (7.4-11.0) L 10/13/17 03:50 Neut % (Auto) 92.4 % (42.0-75.0) H 10/13/17 03:50 Lymph % (Auto) 3.8 % (21.0-51.0) L 10/13/17 03:50 [place] % (Auto) 3.7 % (0.0-13.0) 10/13/17 03:50 Eos % (Auto) 0.0 % (0.9-2.9) L 10/13/17 03:50 Baso % (Auto) 0.1 % (0.2-1.0) L 10/13/17 03:50 Neut # (Auto) 10.2 x10^3/uL (2.2-4.8) H 10/13/17 03:50 Lymph # (Auto) 0.4 X10^3/uL (1.3-2.9) L 10/13/17 03:50 [place] # (Auto) 0.4 x10^3/uL (0.3-0.8) 10/13/17 03:50 Eos # (Auto) 0.0 x10^3/uL (0.0-0.2) 10/13/17 03:50 Baso # (Auto) 0.0 X10^3/uL (0.0-0.1) 10/13/17 03:50 Absolute Nucleated RBC 0.0 /100WBC 10/13/17 03:50 Total Counted 100 10/13/17 03:50 Neutrophils % (Manual) 95 % (39-76) H 10/13/17 03:50 Band Neutrophils % 1 % (0-10) 10/13/17 03:50 Lymphocytes % (Manual) 2 % (13-43) L 10/13/17 03:50 Monocytes % (Manual) 2 % (4-9) L 10/13/17 03:50 Plt Morphology Comment Normal (NORMAL) 10/13/17 03:50 RBC Morphology Normal (NORMAL) 10/13/17 03:50 Sample Site Rr 10/10/17 11:25 ABG pH 7.420 (7.35-7.45) 10/10/17 11:25 ABG pCO2 42.0 mmHg (35.0-45.0) 10/10/17 11:25 ABG pO2 81.0 mmHg (80.0-100.0) 10/10/17 11:25 ABG HCO3 27.2 mmol/L (22-26) H 10/10/17 11:25 ABG O2 Saturation 96.0 % (90-100) 10/10/17 11:25 ABG Base Excess 2.4 mmol/L (-2.0-2.0) H 10/10/17 11:25 Froy Test Pos 10/10/17 11:25 A-a Gradient 16.0 mmHg 10/10/17 11:25 FiO2 21.000 10/10/17 11:25 Blood Gas Comments Pt maye well. cdn 10/10/17 11:25 Sodium 139 mmol/L (136-145) 10/13/17 03:50 Corrected Sodium 139 mmol/L (136-145) 10/13/17 03:50 Potassium 4.3 mmol/L (3.5-5.1) 10/13/17 03:50 Chloride 103 mmol/L (98-107) 10/13/17 03:50 Carbon Dioxide 32.4 mmol/L (21-32) H 10/13/17 03:50 BUN 16 mg/dL (7-18) 10/13/17 03:50 Creatinine 0.79 mg/dL (0.70-1.30) 10/13/17 03:50 Est GFR (MDRD) Af Amer > 60 (>60) 10/13/17 03:50 Est GFR (MDRD) Non-Af > 60 (>60) 10/13/17 03:50 Glucose 119 mg/dL (65-99) H 10/13/17 03:50 Calcium 8.0 mg/dL (8.5-10.1) L 10/13/17 03:50 Corrected Calcium 8.9 mg/dL (8.5-10.1) 10/13/17 03:50 Total Bilirubin 0.20 mg/dL (0.2-1.0) 10/13/17 03:50 AST 14 Units/L (15-37) L 10/13/17 03:50 ALT 26 Units/L (12-78) 10/13/17 03:50 Alkaline Phosphatase 46 Units/L (46-116) 10/13/17 03:50 Total Protein 6.0 g/dL (6.4-8.2) L 10/13/17 03:50 Albumin 2.9 g/dL (3.4-5.0) L 10/13/17 03:50 Globulin 3.1 g/dL (2.5-4.5) 10/13/17 03:50 Albumin/Globulin Ratio 0.9 Ratio (1.1-2.1) L 10/13/17 03:50 Specimen Type Clean catch urine 10/10/17 14:21 Urine Color Yellow (YELLOW) 10/10/17 14:21 Urine Appearance Clear (CLEAR) 10/10/17 14:21 Urine pH 6.0 (5.0 - 8.0) 10/10/17 14:21 Ur Specific [place] 1.010 (1.000-1.030) 10/10/17 14:21 Urine Protein Negative (NEGATIVE) 10/10/17 14:21 Urine Glucose (UA) Negative (NEGATIVE) 10/10/17 14:21 Urine Ketones Negative (NEGATIVE) 10/10/17 14:21 Urine Occult Blood Negative (NEGATIVE) 10/10/17 14:21 Urine Nitrite Negative (NEGATIVE) 10/10/17 14:21 Urine Bilirubin Negative (NEGATIVE) 10/10/17 14:21 Urine Urobilinogen Normal (NORMAL) 10/10/17 14:21 Ur Leukocyte Esterase Negative (NEGATIVE) 10/10/17 14:21
[2017-10-14] MEDS: DUONEB 0.5 MG/3 MG NEB SCH ×3 (01:28→08:25)
[2017-10-14] MEDS: PERCOCET TAB 5/325 MG PO PRN ×2 (04:30→11:10)
[2017-10-14] MEDS: NEURONTIN CAP 300 MG PO SCH (05:05)
[2017-10-14 05:25] LABS: BASOPHILS % (AUTO) 0.3 % (0.2-1.0); HEMATOCRIT 41.5 % (42.0-54.0); HEMOGLOBIN 14.3 g/dL (13.5-18.0); LYMPHOCYTES # (AUTO) 0.7 X10^3/uL (1.3-2.9); LYMPHOCYTES % (AUTO) 6.1 % (21.0-51.0); MEAN CORPUSCULAR HEMOGLOBIN 31.3 pg (27.0-34.0); MEAN CORPUSCULAR HGB CONC 34.4 g/dL (33.0-35.0); MEAN CORPUSCULAR VOLUME 90.9 fL (80.0-100.0); MEAN PLATELET VOLUME 7.2 fL (7.4-11.0); MONOCYTES # (AUTO) 0.8 x10^3/uL (0.3-0.8); MONOCYTES % (AUTO) 7.6 % (0.0-13.0); NEUTROPHILS # (AUTO) 9.3 x10^3/uL (2.2-4.8); PLATELET COUNT 201 X10^3/uL (150.0-450.0); RED BLOOD COUNT 4.56 X10^6/uL (4.7-6.0); RED CELL DISTRIBUTION WIDTH 14.1 % (11.6-16.5); WHITE BLOOD COUNT 10.8 X10^3/uL (3.6-10.0)
[2017-10-14 05:36] LABS: ALANINE AMINOTRANSFERASE 26 Units/L (12-78); ALBUMIN 2.9 g/dL (3.4-5.0); ALKALINE PHOSPHATASE 51 Units/L (46-116); ASPARTATE AMINO TRANSFERASE 13 Units/L (15-37); BLOOD UREA NITROGEN 16 mg/dL (7-18); CALCIUM 8.1 mg/dL (8.5-10.1); CARBON DIOXIDE 31.3 mmol/L (21-32); CHLORIDE 103 mmol/L (98-107); COR NA(FOR HYPERGLY) 140 mmol/L (136-145); CREATININE 0.82 mg/dL (0.70-1.30); SODIUM 140 mmol/L (136-145); eGFR BLACK RACES > 60 (>60); eGFR NON BLACK RACES > 60 (>60)
[2017-10-14 05:55] LABS: BAND NEUTROPHILS % 1 % (0-10); PLATELET MORPHOLOGY COMMENT NORMAL (NORMAL)
--- NOTE | 2017-10-14 07:10 | RAD ---
HISTORY: Shortness of breath Study: Chest AP portable Comparison: 10/10/2017, 10/13/2017 Findings: The heart is within normal limits in size. The ambika are normal. The lungs are hyperinflated but free of acute alveolar infiltrates. No pleural effusions are identified. The bony thorax is unremarkable. IMPRESSION: Lungs hyperinflated but clear Reported By:
[2017-10-14] MEDS: PULMICORT NEB TX 0.5 MG NEB SCH (08:25)
[2017-10-14] MEDS: FLOMAX PO SCH (08:40)
[2017-10-14] MEDS: DIFLUCAN 200 MG IV PREMIX* 200 MG/100 ML BAG IV SCH (08:40)
[2017-10-14] MEDS: LEVAQUIN PREMIX IV 500 MG 500 MG/100 ML BAG IV SCH (08:40)
[2017-10-14] MEDS: NYSTATIN SUSP MT SCH (08:40)
[2017-10-14] MEDS: LOVENOX INJ 30 MG SYR SC SCH (08:40)
[2017-10-14] MEDS: CHECK PATCH XX SCH (08:41)
[2017-10-14] MEDS: PROTONIX INJ 40 MG VIAL IVP SCH (08:41)
[2017-10-14 12:08] VITALS: BP 144/83
== END 2017-10-14 12:10 | disposition home or self-care (01) | DRG 190 ==
LOC: UNDOADMIN 09:37 → MED/SURG 09:37
PROVIDERS: ADMIT Internal Medicine; ATTEND Internal Medicine
DX: J44.1 Chronic obstructive pulmonary disease with (acute) exacerbation (principal); J20.8 Acute bronchitis due to other specified organisms; J96.21 Acute and chronic respiratory failure with hypoxia; R06.02 Shortness of breath; I25.10 Atherosclerotic heart disease of native coronary artery without angina pectoris; K21.9 Gastro-esophageal reflux disease without esophagitis; F41.8 Other specified anxiety disorders; R13.11 Dysphagia, oral phase; B37.0 Candidal stomatitis; R26.89 Other abnormalities of gait and mobility
CPT/HCPCS: 36415; 36600; 71045; 71046; 80048; 80053; 81003; 82803; 85025; 87040; 87070; 87077; 87086; 87186; 87205; 93005; 93010; 94640; 94760; 97535; A4222; C9113; J1450; J1650; J1956; J2930; J7620; J7626

== ENCOUNTER 2018-06-09 10:24 | Inpatient (IN) ==
[2018-06-09] MEDS ORDERED: DUONEB 0.5 MG/3 MG NEB SCH (13:16)
[2018-06-09 13:51] LABS: BASOPHILS # (AUTO) 0.1 X10^3/uL (0.0-0.1); BASOPHILS % (AUTO) 0.7 % (0.2-1.0); EOSINOPHILS # (AUTO) 0.2 x10^3/uL (0.0-0.2); EOSINOPHILS % (AUTO) 1.5 % (0.9-2.9); HEMATOCRIT 47.4 % (42.0-54.0); LYMPHOCYTES # (AUTO) 0.9 X10^3/uL (1.3-2.9); LYMPHOCYTES % (AUTO) 9.2 % (21.0-51.0); MEAN CORPUSCULAR HEMOGLOBIN 31.5 pg (27.0-34.0); MEAN CORPUSCULAR HGB CONC 33.8 g/dL (33.0-35.0); MEAN CORPUSCULAR VOLUME 93.3 fL (80.0-100.0); MEAN PLATELET VOLUME 6.9 fL (7.4-11.0); MONOCYTES # (AUTO) 0.6 x10^3/uL (0.3-0.8); NEUTROPHILS # (AUTO) 8.2 x10^3/uL (2.2-4.8); NEUTROPHILS % (AUTO) 82.6 % (42.0-75.0); PLATELET COUNT 229 X10^3/uL (150.0-450.0); RED BLOOD COUNT 5.08 X10^6/uL (4.7-6.0); RED CELL DISTRIBUTION WIDTH 13.9 % (11.6-16.5)
[2018-06-09 13:54] VITALS: BMI 23.7
[2018-06-09] MEDS: DUONEB 0.5 MG/3 MG NEB SCH ×3 (14:00→20:22)
[2018-06-09] MEDS: NS 1000 ML 1,000 ML IV SCH (14:07)
[2018-06-09] MEDS: ZITHROMAX INJ 500 MG VIAL 500 MG in NS 250 ML IV 250 ML IV SCH (14:07)
[2018-06-09] MEDS: LEVAQUIN PREMIX IV 500 MG 500 MG/100 ML BAG IV SCH (14:07)
[2018-06-09 14:09] LABS: BLOOD UREA NITROGEN 13 mg/dL (7-18); CALCIUM 8.9 mg/dL (8.5-10.1); CARBON DIOXIDE 32.9 mmol/L (21-32); CHLORIDE 99 mmol/L (98-107); CKMB % 4.3 % (<4); CREATINE KINASE 35 Units/L (39-308); CREATINE KINASE MB 1.5 ng/mL (0-4.0); CREATININE 0.98 mg/dL (0.70-1.30); SODIUM 138 mmol/L (136-145); TROPONIN I < 0.02 ng/mL (0-1.5); eGFR NON BLACK RACES > 60 (>60)
[2018-06-09 14:09] LABS: ABG BASE EXCESS 3.9 mmol/L (-2.0-2.0)
[2018-06-09 14:10] LABS: ABG ALLEN TEST POS; ABG HCO3 30.5 mmol/L (22-26)
--- NOTE | 2018-06-09 14:41 | RAD ---
HISTORY: Shortness of breath Study: Two-view chest Comparison: One view chest 10/14/2017 Technique: PA and lateral chest Findings: Soft bony thorax are normal. The heart size configuration and airway are normal there is diffuse osteopenia but no acute osseous lesions. The heart size configuration airway and vascularity are normal there are mild chronic lung changes IMPRESSION: 1. Mild chronic lung changes but no acute cardiopulmonary abnormalities. There is no significant interval change from the prior film of 10/14/2017. Reported By:
[2018-06-09 19:46] LABS: BILIRUBIN,URINE NEGATIVE (NEGATIVE); BLOOD/HEMOGLOBIN,URINE NEGATIVE (NEGATIVE); GLUCOSE, URINE NEGATIVE (NEGATIVE); KETONES,URINE NEGATIVE (NEGATIVE); LEUKOCYTE ESTERASE ,URINE 1+ (NEGATIVE); NITRITES,URINE NEGATIVE (NEGATIVE); PROTEIN,URINE NEGATIVE (NEGATIVE); UROBILINOGEN,URINE NORMAL (NORMAL)
[2018-06-09 19:49] LABS: APPEARANCE,URINE CLEAR (CLEAR); COLOR,URINE YELLOW (YELLOW)
[2018-06-09 19:54] LABS: RBC,URINE 0-2 /HPF (NONE SEEN)
[2018-06-09 19:55] LABS: BACTERIA,URINE NEGATIVE /HPF (NEGATIVE); SQUAMOUS EPITHELIAL CELL,UR FEW /HPF (NEGATIVE)
[2018-06-09] MEDS: PULMICORT NEB TX 0.5 MG NEB SCH (20:22)
[2018-06-09] MEDS: BROVANA IN SCH (20:22)
[2018-06-09] MEDS: LOVENOX INJ 40 MG SYR SC SCH (20:51)
[2018-06-09] MEDS: NORCO 5/325 MG TAB PO PRN (22:41)
[2018-06-10] MEDS: DUONEB 0.5 MG/3 MG NEB SCH ×6 (01:06→20:21)
[2018-06-10 05:20] LABS: BASOPHILS # (AUTO) 0.1 X10^3/uL (0.0-0.1); BASOPHILS % (AUTO) 0.7 % (0.2-1.0); EOSINOPHILS # (AUTO) 0.2 x10^3/uL (0.0-0.2); EOSINOPHILS % (AUTO) 2.7 % (0.9-2.9); LYMPHOCYTES # (AUTO) 1.5 X10^3/uL (1.3-2.9); LYMPHOCYTES % (AUTO) 17.5 % (21.0-51.0); MEAN CORPUSCULAR HEMOGLOBIN 31.2 pg (27.0-34.0); MEAN CORPUSCULAR HGB CONC 33.8 g/dL (33.0-35.0); MEAN CORPUSCULAR VOLUME 92.4 fL (80.0-100.0); MEAN PLATELET VOLUME 6.9 fL (7.4-11.0); MONOCYTES # (AUTO) 0.9 x10^3/uL (0.3-0.8); MONOCYTES % (AUTO) 10.2 % (0.0-13.0); NEUTROPHILS % (AUTO) 68.9 % (42.0-75.0); PLATELET COUNT 206 X10^3/uL (150.0-450.0); RED BLOOD COUNT 4.33 X10^6/uL (4.7-6.0); RED CELL DISTRIBUTION WIDTH 13.8 % (11.6-16.5); WHITE BLOOD COUNT 8.7 X10^3/uL (3.6-10.0)
[2018-06-10 05:34] LABS: ALANINE AMINOTRANSFERASE 16 Units/L (12-78); ALBUMIN 2.8 g/dL (3.4-5.0); ALKALINE PHOSPHATASE 47 Units/L (46-116); ASPARTATE AMINO TRANSFERASE 11 Units/L (15-37); BLOOD UREA NITROGEN 13 mg/dL (7-18); CARBON DIOXIDE 31.5 mmol/L (21-32); CHLORIDE 104 mmol/L (98-107); CREATININE 0.94 mg/dL (0.70-1.30); SODIUM 142 mmol/L (136-145); TOTAL PROTEIN 5.9 g/dL (6.4-8.2); eGFR NON BLACK RACES > 60 (>60)
[2018-06-10 06:03] LABS: HEMOGLOBIN 13.5 g/dL (13.5-18.0)
[2018-06-10] MEDS: PULMICORT NEB TX 0.5 MG NEB SCH ×2 (09:09→20:21)
[2018-06-10] MEDS: BROVANA IN SCH ×2 (09:09→20:21)
[2018-06-10] MEDS: NORCO 5/325 MG TAB PO PRN ×2 (09:33→19:50)
[2018-06-10] MEDS: ZITHROMAX INJ 500 MG VIAL 500 MG in NS 250 ML IV 250 ML IV SCH (09:37)
[2018-06-10] MEDS: LEVAQUIN PREMIX IV 500 MG 500 MG/100 ML BAG IV SCH (09:37)
[2018-06-10] MEDS: LOVENOX INJ 40 MG SYR SC SCH (09:39)
--- NOTE | 2018-06-10 11:23 | DR.H&P ---
H&P - History & Physical for Day of: H&P Date: 06/09/18 - Chief Complaint Chief Complaint: SOB, Chest and Congestion - History of Present Illness History of Present Illness: The patient is a 72yo WM who presented to office with complaint of increasing shortness of breath, wheezing and congestion. Patient states that he is still taking Levaquin, Prednisone and doung nebs every 4 hours. States that he is wearing his oxygen. Has had low grade temp. SOB is progressively getting worse. Has to rest with walking room to room. - Past Medical History Past Medical History: Anxiety, Arthritis, COPD, Coronary Artery Disease, GERD Additional Medical History: BPH - Past Surgical History Surgical History: Ortho Surgery, TURP - Family History Family Medical History: Cancer, Coronary Artery Disease, Heart Failure, Hypertension - Social History Does patient currently use any type of tobacco product: Yes (Quit smoking years ago) Have you used tobacco products in the last 12 months: Yes Type of Tobacco Use: Cigarettes Does any household member use tobacco: Yes Alcohol Use: None Drug Use: None - Medications Home Medications: ibuprofen [From Advil] Allergy (Verified 10/10/17 10:56) Penicillins Allergy (Verified 10/10/17 10:56) Sulfa (Sulfonamide Antibiotics) [SULFA] Allergy (Verified 10/10/17 10:56) CONTINUE taking the following medications albuterol sulfate [Ventolin HFA] 2 puff INHALATION TID PRN 06/09/18 [History] clopidogrel 75 mg PO DAILY 06/09/18 [History] cyproheptadine 4 mg PO TID 06/09/18 [History] [id number] [Trelegy Ellipta] 1 puff INHALATION TID PRN 06/09/18 [History] tramadol 50 mg PO BID 06/09/18 [History] - Review of Systems Constitutional: Weakness, Malaise Eyes: No Symptoms Reported ENT: No Symptoms Reported Respiratory: Cough, Shortness of Breath, SOB with Excertion, Wheezing Cardiovascular: No Symptoms Reported Gastrointestinal: No Symptoms Reported Genitourinary: No Symptoms Reported Musculoskeletal: No Symptoms Reported Skin: No Symptoms Reported Neurological: No Symptoms Reported - Physical Exam Vital Signs: Temperature 97.7 F Pulse Rate [Left Brachial] 60 Pulse Rate 64 Respiratory Rate 16 Blood Pressure [Right Arm] 144/83 Blood Pressure [Left Arm] 137/66 Blood Pressure 144/83 O2 Sat by Pulse Oximetry 99 Oriented: Normal Eyes: Normal Ear: Normal Nose: Normal Throat: Normal Respiratory: Diminished Throughout, RUL Exp. Wheeze, RML Exp. Wheeze, TAMIKA Exp. Wheeze, LML Exp. Wheeze Cardiovascular: Normal : Normal Auscultation: Bowel Sounds: Normal Palpation: Normal Tenderness: Normal Skin: Normal Musculoskeletal: Back:Lumbar Psychiatric: Normal Mood Description: Calm Affect: Normal Speech Pattern: Clear - Assessment/Plan (1) Acute bronchitis Status: Acute Plan: CXR, Labs, IV Solu-medrol and antibiotics, Nebs, O2 (2) Chronic respiratory failure Status: Acute Plan: O2 (3) Acute exacerbation of chronic obstructive pulmonary disease (COPD) Status: Acute Plan: CXR, Labs, IV Solu-medrol and antibiotics, Nebs, O2, ABG - Allergies Allergies/Adverse Reactions: Allergies Allergy/AdvReac Type Severity Reaction Status Date / Time ibuprofen [From Advil] Allergy Verified 10/10/17 10:56 Penicillins Allergy Verified 10/10/17 10:56 Sulfa (Sulfonamide Allergy Verified 10/10/17 10:56 Antibiotics) [SULFA]
[2018-06-10] MEDS: SOLU-Medrol 40 MG VIAL IVP SCH (11:57)
[2018-06-10] MEDS: NS 1000 ML 1,000 ML IV SCH (19:52)
[2018-06-10] MEDS: NYSTATIN SUSP PO SCH (20:00)
[2018-06-10] MEDS: TUSSIONEX PENNKINETIC SUSP PO PRN (20:02)
[2018-06-11] MEDS: SOLU-Medrol 40 MG VIAL IVP SCH ×3 (00:33→16:58)
[2018-06-11] MEDS: DUONEB 0.5 MG/3 MG NEB SCH ×6 (01:28→20:40)
[2018-06-11 05:23] LABS: BASOPHILS % (AUTO) 0.1 % (0.2-1.0); EOSINOPHILS % (AUTO) 0.1 % (0.9-2.9); HEMATOCRIT 43.2 % (42.0-54.0); HEMOGLOBIN 14.3 g/dL (13.5-18.0); LYMPHOCYTES # (AUTO) 0.4 X10^3/uL (1.3-2.9); MEAN PLATELET VOLUME 6.9 fL (7.4-11.0); MONOCYTES # (AUTO) 0.1 x10^3/uL (0.3-0.8); MONOCYTES % (AUTO) 1.7 % (0.0-13.0); NEUTROPHILS # (AUTO) 8.5 x10^3/uL (2.2-4.8); NEUTROPHILS % (AUTO) 94.1 % (42.0-75.0); PLATELET COUNT 217 X10^3/uL (150.0-450.0); RED BLOOD COUNT 4.59 X10^6/uL (4.7-6.0)
[2018-06-11 05:41] LABS: ALANINE AMINOTRANSFERASE 16 Units/L (12-78); ALBUMIN 3.2 g/dL (3.4-5.0); ALKALINE PHOSPHATASE 50 Units/L (46-116); ASPARTATE AMINO TRANSFERASE 11 Units/L (15-37); BLOOD UREA NITROGEN 11 mg/dL (7-18); CALCIUM 8.6 mg/dL (8.5-10.1); CARBON DIOXIDE 26.8 mmol/L (21-32); CHLORIDE 103 mmol/L (98-107); COR CA(FOR HYPOALB) 9.2 mg/dL (8.5-10.1); COR NA(FOR HYPERGLY) 141 mmol/L (136-145); CREATININE 0.83 mg/dL (0.70-1.30); SODIUM 140 mmol/L (136-145); TOTAL PROTEIN 6.7 g/dL (6.4-8.2); eGFR NON BLACK RACES > 60 (>60)
[2018-06-11 06:03] LABS: BAND NEUTROPHILS % 3 % (0-10); PLATELET MORPHOLOGY COMMENT NORMAL (NORMAL)
[2018-06-11] MEDS: NORCO 5/325 MG TAB PO PRN (09:00)
[2018-06-11] MEDS: ZITHROMAX INJ 500 MG VIAL 500 MG in NS 250 ML IV 250 ML IV SCH (09:00)
[2018-06-11] MEDS: NYSTATIN SUSP PO SCH ×4 (09:01→20:29)
[2018-06-11] MEDS: LOVENOX INJ 40 MG SYR SC SCH (09:01)
[2018-06-11] MEDS: LEVAQUIN PREMIX IV 500 MG 500 MG/100 ML BAG IV SCH (09:03)
[2018-06-11] MEDS: PULMICORT NEB TX 0.5 MG NEB SCH ×2 (09:09→20:40)
[2018-06-11] MEDS: BROVANA IN SCH ×2 (09:09→20:40)
--- NOTE | 2018-06-11 09:13 | RAD ---
HISTORY: Shortness of breath Study: Two-view chest Comparison: No 06/09/2018 Findings: The trachea is midline. The cardiac silhouette is unremarkable. Chronic interstitial lung changes are observed without focal infiltrate or effusion. The bony thorax is unremarkable. IMPRESSION: 1. No acute cardiopulmonary disease. Reported By:
[2018-06-11] MEDS ORDERED: COLACE CAP 100 MG PO PRN (12:52)
[2018-06-11] MEDS: NS 1000 ML 1,000 ML IV SCH ×2 (12:55→14:22)
[2018-06-11] MEDS: TUSSIONEX PENNKINETIC SUSP PO PRN (13:20)
[2018-06-11] MEDS ORDERED: PATIENT'S HOME MEDICATION (Oxycodone-Acetaminophen [Oxycodone-Acetaminophen] 0 MG) PO PRN (13:26)
[2018-06-11] MEDS ORDERED: ATIVAN TAB 0.5 MG PO PRN (13:26)
--- NOTE | 2018-06-11 13:43 | PCM.PROG ---
Progress Note - Progress Note for Day of Date of Exam: 06/11/18 - Subjective Subjective: 72 WM DIRECT ADMIT ON 06/09 WITH COPD EXACERBATION WITH ACUTE BRONCHITIS, FAILED OUT PT THERAPY. PT CURRENTLY ON IV ATBX, SPUTUM WITH NORMAL RESP CRUZITO GROWTH. PT CONTINUES WITH CO WEAKNESS AND CHEST CONGESTION. PT ON DUE NEBS AND SUPPLEMENTAL O2. WILL REPEAT AM CXR AND ENCOURATE SPUTUM PRODUCTION, RESP THERAPY - Past Medical Family Social History Past Med/Fam/Surg Hx: No changes since H&P Allergies: Allergies ibuprofen [From Advil] Allergy (Verified 10/10/17 10:56) Penicillins Allergy (Verified 10/10/17 10:56) Sulfa (Sulfonamide Antibiotics) [SULFA] Allergy (Verified 10/10/17 10:56) - Review of Systems ROS: No change since H&P - Vital Signs and I&O's Vital Signs: Temperature 98.7 F Pulse Rate [Left Brachial] 92 Pulse Rate 68 Respiratory Rate 18 Blood Pressure [Right Arm] 117/65 Blood Pressure [Left Arm] 112/63 Blood Pressure 144/83 O2 Sat by Pulse Oximetry 98 Intake and Output: Intake & Output 06/09/18 06/10/18 06/11/18 06/12/18 11:59 11:59 11:59 11:59 Intake Total 380 / 380 1909 Output Total 0 / 0 Balance 380 / 380 1909 - Physical Exam Oriented: Normal Eyes: Normal Ear: Normal Nose: Normal Throat: Normal Respiratory: Diminished, Wheezes, Rhonchi Cardiovascular: Normal : Normal Auscultation: Bowel Sounds: Normal Tenderness: Normal Skin: Normal Musculoskeletal: Back:Lumbar Psychiatric: Normal Mood Description: Calm Affect: Normal Speech Pattern: Clear, Appropriate - Laboratory and Diagnostics Result Diagrams: 06/11/18 04:27 06/11/18 04:27 Labs: 06/09/18 12:48 Sputum - Expectorated Sputum Sputum Culture - Final 06/09/18 12:48 Sputum - Expectorated Sputum - Final Laboratory WBC 9.0 X10^3/uL (3.6-10.0) 06/11/18 04:27 RBC 4.59 X10^6/uL (4.7-6.0) L 06/11/18 04:27 Hgb 14.3 g/dL (13.5-18.0) 06/11/18 04:27 Hct 43.2 % (42.0-54.0) 06/11/18 04:27 MCV 94.0 fL (80.0-100.0) 06/11/18 04:27 MCH 31.0 pg (27.0-34.0) 06/11/18 04:27 MCHC 33.0 g/dL (33.0-35.0) 06/11/18 04:27 RDW 14.0 % (11.6-16.5) 06/11/18 04:27 Plt Count 217 X10^3/uL (150.0-450.0) 06/11/18 04:27 Plt Count Comment Adequate (ADEQUATE) 06/11/18 04:27 MPV 6.9 fL (7.4-11.0) L 06/11/18 04:27 Neut % (Auto) 94.1 % (42.0-75.0) H 06/11/18 04:27 Lymph % (Auto) 4.0 % (21.0-51.0) L 06/11/18 04:27 [place] % (Auto) 1.7 % (0.0-13.0) 06/11/18 04:27 Eos % (Auto) 0.1 % (0.9-2.9) L 06/11/18 04:27 Baso % (Auto) 0.1 % (0.2-1.0) L 06/11/18 04:27 Neut # (Auto) 8.5 x10^3/uL (2.2-4.8) H 06/11/18 04:27 Lymph # (Auto) 0.4 X10^3/uL (1.3-2.9) L 06/11/18 04:27 [place] # (Auto) 0.1 x10^3/uL (0.3-0.8) L 06/11/18 04:27 Eos # (Auto) 0.0 x10^3/uL (0.0-0.2) 06/11/18 04:27 Baso # (Auto) 0.0 X10^3/uL (0.0-0.1) 06/11/18 04:27 Absolute Nucleated RBC 0.0 /100WBC 06/11/18 04:27 Total Counted 100 06/11/18 04:27 Neutrophils % (Manual) 93 % (39-76) H 06/11/18 04:27 Band Neutrophils % 3 % (0-10) 06/11/18 04:27 Lymphocytes % (Manual) 2 % (13-43) L 06/11/18 04:27 Monocytes % (Manual) 2 % (4-9) L 06/11/18 04:27 Plt Morphology Comment Normal (NORMAL) 06/11/18 04:27 RBC Morphology Normal (NORMAL) 06/11/18 04:27 Sample Site Rrad 06/09/18 13:53 ABG pH 7.360 (7.35-7.45) 06/09/18 13:53 ABG pCO2 54.0 mmHg (35.0-45.0) H* 06/09/18 13:53 ABG pO2 98.0 mmHg (80.0-100.0) 06/09/18 13:53 ABG HCO3 30.5 mmol/L (22-26) H* 06/09/18 13:53 ABG O2 Saturation 97.0 % (90-100) 06/09/18 13:53 ABG Base Excess 3.9 mmol/L (-2.0-2.0) H 06/09/18 13:53 Froy Test Pos 06/09/18 13:53 A-a Gradient 34.0 mmHg 06/09/18 13:53 FiO2 28.0 06/09/18 13:53 Blood Gas Comments Pt maye well cdn 06/09/18 13:53 Sodium 140 mmol/L (136-145) 06/11/18 04:27 Corrected Sodium 141 mmol/L (136-145) 06/11/18 04:27 Potassium 4.2 mmol/L (3.5-5.1) 06/11/18 04:27 Chloride 103 mmol/L (98-107) 06/11/18 04:27 Carbon Dioxide 26.8 mmol/L (21-32) 06/11/18 04:27 BUN 11 mg/dL (7-18) 06/11/18 04:27 Creatinine 0.83 mg/dL (0.70-1.30) 06/11/18 04:27 Est GFR (MDRD) Af Amer > 60 (>60) 06/11/18 04:27 Est GFR (MDRD) Non-Af > 60 (>60) 06/11/18 04:27 Glucose 138 mg/dL (65-99) H 06/11/18 04:27 Calcium 8.6 mg/dL (8.5-10.1) 06/11/18 04:27 Corrected Calcium 9.2 mg/dL (8.5-10.1) 06/11/18 04:27 Total Bilirubin 0.20 mg/dL (0.2-1.0) 06/11/18 04:27 AST 11 Units/L (15-37) L 06/11/18 04:27 ALT 16 Units/L (12-78) 06/11/18 04:27 Alkaline Phosphatase 50 Units/L (46-116) 06/11/18 04:27 Creatine Kinase 35 Units/L (39-308) L 06/09/18 13:30 CK-MB (CK-2) 1.5 ng/mL (0-4.0) 06/09/18 13:30 CK/CKMB % Calc 4.3 % (<4) 06/09/18 13:30 Troponin I < 0.02 ng/mL (0-1.5) 06/09/18 13:30 Total Protein 6.7 g/dL (6.4-8.2) 06/11/18 04:27 Albumin 3.2 g/dL (3.4-5.0) L 06/11/18 04:27 Globulin 3.5 g/dL (2.5-4.5) 06/11/18 04:27 Albumin/Globulin Ratio 0.9 Ratio (1.1-2.1) L 06/11/18 04:27 Specimen Type Clean catch urine 06/09/18 19:30 Urine Color Yellow (YELLOW) 06/09/18 19:30 Urine Appearance Clear (CLEAR) 06/09/18 19:30 Urine pH 6.0 (5.0 - 8.0) 06/09/18 19:30 Ur Specific [place] 1.015 (1.000-1.030) 06/09/18 19:30 Urine Protein Negative (NEGATIVE) 06/09/18 19:30 Urine Glucose (UA) Negative (NEGATIVE) 06/09/18 19:30 Urine Ketones Negative (NEGATIVE) 06/09/18 19:30 Urine Occult Blood Negative (NEGATIVE) 06/09/18 19:30 Urine Nitrite Negative (NEGATIVE) 06/09/18 19:30 Urine Bilirubin Negative (NEGATIVE) 06/09/18 19:30 Urine Urobilinogen Normal (NORMAL) 06/09/18 19:30 Ur Leukocyte Esterase 1+ (NEGATIVE) 06/09/18 19:30 Urine RBC 0-2 /HPF (NONE SEEN) 06/09/18 19:30 Urine WBC None seen /HPF (NONE SEEN) 06/09/18 19:30 Ur Squamous Epith Cells Few /HPF (NEGATIVE) 06/09/18 19:30 Urine Bacteria Negative /HPF (NEGATIVE) 06/09/18 19:30 Ur Culture Indicated? No/not indicated 06/09/18 19:30 - Plan (1) Acute exacerbation of chronic obstructive pulmonary disease (COPD) Status: Acute Plan: CXR, Labs, IV Solu-medrol and antibiotics, Nebs, O2, ABG (2) GERD (gastroesophageal reflux disease) Status: Acute
[2018-06-11] MEDS ORDERED: PERIACTIN TAB 4 MG PO SCH (14:00)
[2018-06-11] MEDS: PATIENT'S HOME MEDICATION (Dexlansoprazole [Dexilant] 60 MG) PO SCH (14:39)
[2018-06-11] MEDS: FLOMAX PO SCH (14:44)
[2018-06-11] MEDS: PLAVIX PO SCH (14:44)
[2018-06-11] MEDS: NEURONTIN CAP 300 MG PO SCH ×2 (14:44→21:04)
[2018-06-11] MEDS: LOPRESSOR TAB 25 MG PO SCH ×2 (14:45→20:29)
[2018-06-11] MEDS: PERCOCET TAB 5/325 MG PO PRN (16:55)
[2018-06-11] MEDS ORDERED: SINGULAIR TAB 10 MG PO SCH (21:00)
[2018-06-11] MEDS ORDERED: ZETIA TAB 10 MG PO SCH (21:00)
[2018-06-12] MEDS: DUONEB 0.5 MG/3 MG NEB SCH ×4 (00:42→12:07)
[2018-06-12] MEDS: SOLU-Medrol 40 MG VIAL IVP SCH ×2 (01:00→09:00)
[2018-06-12] MEDS: NEURONTIN CAP 300 MG PO SCH ×2 (05:05→14:02)
[2018-06-12 05:19] LABS: BASOPHILS % (AUTO) 0.3 % (0.2-1.0); HEMATOCRIT 40.2 % (42.0-54.0); HEMOGLOBIN 13.4 g/dL (13.5-18.0); LYMPHOCYTES # (AUTO) 0.5 X10^3/uL (1.3-2.9); LYMPHOCYTES % (AUTO) 3.3 % (21.0-51.0); MEAN CORPUSCULAR HGB CONC 33.2 g/dL (33.0-35.0); MEAN CORPUSCULAR VOLUME 93.2 fL (80.0-100.0); MEAN PLATELET VOLUME 6.8 fL (7.4-11.0); MONOCYTES # (AUTO) 0.6 x10^3/uL (0.3-0.8); MONOCYTES % (AUTO) 4.1 % (0.0-13.0); NEUTROPHILS # (AUTO) 13.1 x10^3/uL (2.2-4.8); NEUTROPHILS % (AUTO) 92.3 % (42.0-75.0); PLATELET COUNT 213 X10^3/uL (150.0-450.0); RED BLOOD COUNT 4.31 X10^6/uL (4.7-6.0); WHITE BLOOD COUNT 14.2 X10^3/uL (3.6-10.0)
[2018-06-12 05:36] LABS: ALANINE AMINOTRANSFERASE 18 Units/L (12-78); ALKALINE PHOSPHATASE 43 Units/L (46-116); ASPARTATE AMINO TRANSFERASE 10 Units/L (15-37); BLOOD UREA NITROGEN 14 mg/dL (7-18); CALCIUM 8.7 mg/dL (8.5-10.1); CARBON DIOXIDE 27.4 mmol/L (21-32); CHLORIDE 105 mmol/L (98-107); COR CA(FOR HYPOALB) 9.5 mg/dL (8.5-10.1); COR NA(FOR HYPERGLY) 142 mmol/L (136-145); CREATININE 0.66 mg/dL (0.70-1.30); SODIUM 141 mmol/L (136-145); TOTAL PROTEIN 6.1 g/dL (6.4-8.2); eGFR NON BLACK RACES > 60 (>60)
[2018-06-12 05:44] LABS: PLATELET MORPHOLOGY COMMENT NORMAL (NORMAL)
[2018-06-12] MEDS: BROVANA IN SCH (08:25)
[2018-06-12] MEDS: PULMICORT NEB TX 0.5 MG NEB SCH (08:25)
[2018-06-12] MEDS ORDERED: PERIACTIN TAB 4 MG PO SCH (09:00)
[2018-06-12] MEDS: PLAVIX PO SCH (09:00)
[2018-06-12] MEDS: LEVAQUIN PREMIX IV 500 MG 500 MG/100 ML BAG IV SCH (09:00)
[2018-06-12] MEDS: FLOMAX PO SCH (09:00)
[2018-06-12] MEDS: ZITHROMAX INJ 500 MG VIAL 500 MG in NS 250 ML IV 250 ML IV SCH (09:00)
[2018-06-12] MEDS: NYSTATIN SUSP PO SCH ×2 (09:00→14:02)
[2018-06-12] MEDS: LOPRESSOR TAB 25 MG PO SCH (09:00)
[2018-06-12] MEDS: LOVENOX INJ 40 MG SYR SC SCH (09:00)
[2018-06-12 09:29] LABS: ABG BASE EXCESS 3.9 mmol/L (-2.0-2.0); ABG HCO3 28.5 mmol/L (22-26)
[2018-06-12 09:30] LABS: ABG ALLEN TEST P
[2018-06-12] MEDS: PATIENT'S HOME MEDICATION (Dexlansoprazole [Dexilant] 60 MG) PO SCH (10:49)
[2018-06-12] MEDS: PERCOCET TAB 5/325 MG PO PRN (14:03)
[2018-06-12 16:15] VITALS: BP 122/65
--- NOTE | 2018-06-12 17:33 | PCM.PROG ---
Progress Note - Progress Note for Day of Date of Exam: 06/12/18 - Subjective Subjective: 72 WM DIRECT ADMIT ON 06/09 WITH COPD EXACERBATION WITH ACUTE BRONCHITIS, FAILED OUT PT THERAPY. PT CURRENTLY ON IV ATBX, SPUTUM WITH NORMAL RESP CRUZITO GROWTH. PT CONTINUES WITH DIFFUSE WHEEZING. PT ON DUO NEBS AND SUPPLEMENTAL O2. REPEAT ABG pH 7.44. HO3 28.5 - Past Medical Family Social History Past Med/Fam/Surg Hx: No changes since H&P Allergies: Allergies ibuprofen [From Advil] Allergy (Verified 10/10/17 10:56) Penicillins Allergy (Verified 10/10/17 10:56) Sulfa (Sulfonamide Antibiotics) [SULFA] Allergy (Verified 10/10/17 10:56) - Review of Systems ROS: No change since H&P - Vital Signs and I&O's Vital Signs: Temperature 97.9 F Pulse Rate [Left Brachial] 80 Pulse Rate 70 Respiratory Rate 18 Blood Pressure [Right Arm] 117/65 Blood Pressure [Left Arm] 122/65 Blood Pressure 144/83 O2 Sat by Pulse Oximetry 95 Intake and Output: Intake & Output 06/10/18 06/11/18 06/12/18 06/13/18 11:59 11:59 11:59 11:59 Intake Total 380 / 380 1909 720 / 720 Output Total 0 / 0 Balance 380 / 380 1909 720 / 720 - Physical Exam Oriented: Normal Eyes: Normal Ear: Normal Nose: Normal Throat: Normal Respiratory: Wheezes (MILD DIFFUSE EXP WHEEZES), Rhonchi Cardiovascular: Normal : Normal Auscultation: Bowel Sounds: Normal Tenderness: Normal Skin: Normal Musculoskeletal: Back:Lumbar Psychiatric: Normal Mood Description: Calm Affect: Normal Speech Pattern: Clear, Appropriate - Laboratory and Diagnostics Result Diagrams: 06/12/18 04:29 06/12/18 04:29 Labs: 06/09/18 13:30 Blood Blood Culture - Preliminary 06/09/18 12:48 Sputum - Expectorated Sputum Sputum Culture - Final 06/09/18 12:48 Sputum - Expectorated Sputum - Final Laboratory WBC 14.2 X10^3/uL (3.6-10.0) H 06/12/18 04:29 RBC 4.31 X10^6/uL (4.7-6.0) L 06/12/18 04:29 Hgb 13.4 g/dL (13.5-18.0) L 06/12/18 04:29 Hct 40.2 % (42.0-54.0) L 06/12/18 04:29 MCV 93.2 fL (80.0-100.0) 06/12/18 04:29 MCH 31.0 pg (27.0-34.0) 06/12/18 04:29 MCHC 33.2 g/dL (33.0-35.0) 06/12/18 04:29 RDW 14.0 % (11.6-16.5) 06/12/18 04:29 Plt Count 213 X10^3/uL (150.0-450.0) 06/12/18 04:29 Plt Count Comment Adequate (ADEQUATE) 06/12/18 04:29 MPV 6.8 fL (7.4-11.0) L 06/12/18 04:29 Neut % (Auto) 92.3 % (42.0-75.0) H 06/12/18 04:29 Lymph % (Auto) 3.3 % (21.0-51.0) L 06/12/18 04:29 [place] % (Auto) 4.1 % (0.0-13.0) 06/12/18 04:29 Eos % (Auto) 0.0 % (0.9-2.9) L 06/12/18 04:29 Baso % (Auto) 0.3 % (0.2-1.0) 06/12/18 04:29 Neut # (Auto) 13.1 x10^3/uL (2.2-4.8) H 06/12/18 04:29 Lymph # (Auto) 0.5 X10^3/uL (1.3-2.9) L 06/12/18 04:29 [place] # (Auto) 0.6 x10^3/uL (0.3-0.8) 06/12/18 04:29 Eos # (Auto) 0.0 x10^3/uL (0.0-0.2) 06/12/18 04:29 Baso # (Auto) 0.0 X10^3/uL (0.0-0.1) 06/12/18 04:29 Absolute Nucleated RBC 0.0 /100WBC 06/12/18 04:29 Total Counted 100 06/12/18 04:29 Neutrophils % (Manual) 94 % (39-76) H 06/12/18 04:29 Band Neutrophils % 3 % (0-10) 06/11/18 04:27 Lymphocytes % (Manual) 2 % (13-43) L 06/12/18 04:29 Monocytes % (Manual) 4 % (4-9) 06/12/18 04:29 Plt Morphology Comment Normal (NORMAL) 06/12/18 04:29 RBC Morphology Normal (NORMAL) 06/12/18 04:29 Sample Site Rr 06/12/18 08:13 ABG pH 7.440 (7.35-7.45) 06/12/18 08:13 ABG pCO2 42.0 mmHg (35.0-45.0) 06/12/18 08:13 ABG pO2 91.0 mmHg (80.0-100.0) 06/12/18 08:13 ABG HCO3 28.5 mmol/L (22-26) H 06/12/18 08:13 ABG O2 Saturation 97.0 % (90-100) 06/12/18 08:13 ABG Base Excess 3.9 mmol/L (-2.0-2.0) H 06/12/18 08:13 Froy Test P 06/12/18 08:13 A-a Gradient 56.0 mmHg 06/12/18 08:13 FiO2 28.0 06/12/18 08:13 Blood Gas Comments Shalini well-sd 06/12/18 08:13 Sodium 141 mmol/L (136-145) 06/12/18 04:29 Corrected Sodium 142 mmol/L (136-145) 06/12/18 04:29 Potassium 4.1 mmol/L (3.5-5.1) 06/12/18 04:29 Chloride 105 mmol/L (98-107) 06/12/18 04:29 Carbon Dioxide 27.4 mmol/L (21-32) 06/12/18 04:29 BUN 14 mg/dL (7-18) 06/12/18 04:29 Creatinine 0.66 mg/dL (0.70-1.30) L 06/12/18 04:29 Est GFR (MDRD) Af Amer > 60 (>60) 06/12/18 04:29 Est GFR (MDRD) Non-Af > 60 (>60) 06/12/18 04:29 Glucose 125 mg/dL (65-99) H 06/12/18 04:29 Calcium 8.7 mg/dL (8.5-10.1) 06/12/18 04:29 Corrected Calcium 9.5 mg/dL (8.5-10.1) 06/12/18 04:29 Total Bilirubin 0.20 mg/dL (0.2-1.0) 06/12/18 04:29 AST 10 Units/L (15-37) L 06/12/18 04:29 ALT 18 Units/L (12-78) 06/12/18 04:29 Alkaline Phosphatase 43 Units/L (46-116) L 06/12/18 04:29 Creatine Kinase 35 Units/L (39-308) L 06/09/18 13:30 CK-MB (CK-2) 1.5 ng/mL (0-4.0) 06/09/18 13:30 CK/CKMB % Calc 4.3 % (<4) 06/09/18 13:30 Troponin I < 0.02 ng/mL (0-1.5) 06/09/18 13:30 Total Protein 6.1 g/dL (6.4-8.2) L 06/12/18 04:29 Albumin 3.0 g/dL (3.4-5.0) L 06/12/18 04:29 Globulin 3.1 g/dL (2.5-4.5) 06/12/18 04:29 Albumin/Globulin Ratio 1.0 Ratio (1.1-2.1) L 06/12/18 04:29 Specimen Type Clean catch urine 06/09/18 19:30 Urine Color Yellow (YELLOW) 06/09/18 19:30 Urine Appearance Clear (CLEAR) 06/09/18 19:30 Urine pH 6.0 (5.0 - 8.0) 06/09/18 19:30 Ur Specific [place] 1.015 (1.000-1.030) 06/09/18 19:30 Urine Protein Negative (NEGATIVE) 06/09/18 19:30 Urine Glucose (UA) Negative (NEGATIVE) 12/10/18 19:30 Urine Ketones Negative (NEGATIVE) 06/09/18 19:30 Urine Occult Blood Negative (NEGATIVE) 06/09/18 19:30 Urine Nitrite Negative (NEGATIVE) 06/09/18 19:30 Urine Bilirubin Negative (NEGATIVE) 06/09/18 19:30 Urine Urobilinogen Normal (NORMAL) 06/09/18 19:30 Ur Leukocyte Esterase 1+ (NEGATIVE) 06/09/18 19:30 Urine RBC 0-2 /HPF (NONE SEEN) 06/09/18 19:30 Urine WBC None seen /HPF (NONE SEEN) 06/09/18 19:30 Ur Squamous Epith Cells Few /HPF (NEGATIVE) 06/09/18 19:30 Urine Bacteria Negative /HPF (NEGATIVE) 06/09/18 19:30 Ur Culture Indicated? No/not indicated 06/09/18 19:30 - Plan (1) Acute exacerbation of chronic obstructive pulmonary disease (COPD) Status: Acute Plan: CXR, Labs, IV Solu-medrol and antibiotics, Nebs, O2, ABG (2) GERD (gastroesophageal reflux disease) Status: Acute (3) Hypertension Status: Acute (4) CAD (coronary artery disease) Status: Acute (5) Chronic respiratory failure Status: Acute Plan: O2
== END 2018-06-12 17:00 | disposition home or self-care (01) | DRG 192 ==
LOC: MED/SURG 11:49
PROVIDERS: ADMIT Internal Medicine; ATTEND Internal Medicine
DX: R26.89 Other abnormalities of gait and mobility; R07.89 Other chest pain; F41.8 Other specified anxiety disorders; R06.02 Shortness of breath; I25.10 Atherosclerotic heart disease of native coronary artery without angina pectoris; K21.9 Gastro-esophageal reflux disease without esophagitis; J44.1 Chronic obstructive pulmonary disease with (acute) exacerbation; J20.8 Acute bronchitis due to other specified organisms
CPT/HCPCS: 36415; 36600; 71010; 71020; 71045; 71046; 80048; 80053; 81001; 82550; 82553; 82803; 84484; 85025; 87040; 87070; 87205; 93005; 93010; 94640; 94669; 94760; 97116; 97162; 97165; 97535; A4216; A4222; J0456; J1650; J1956; J2920; J7030; J7050; J7620; J7626